=== PATIENT | female | born 1950 | race Caucasian/White ===

== ENCOUNTER 2022-05-03 12:07 | Emergency (ER) | payer SELFPAY ==
[2022-05-03 12:11] VITALS: BP 124/69; PULSE 68; TEMP 97.6
[2022-05-03] MEDS ORDERED: PRILOTC (12:39)
[2022-05-03] MEDS ORDERED: ULTRAM 50MG TAB50 MG PO (13:27)
== END 2022-05-03 13:49 | disposition home or self-care (01) ==
LOC: COL.ER 12:07
DX: S52.501A Unspecified fracture of the lower end of right radius, initial encounter for closed fracture (principal); W01.0XXA Fall on same level from slipping, tripping and stumbling without subsequent striking against object, initial encounter